=== PATIENT | male | born 1955 | race Caucasian/White ===

== ENCOUNTER → 2018-08-04 | Outpatient (CLI) | payer OTHER ==
[~2018-08-04] MED LIST: DIAZEPAM 10 MG TABLET. ONE; IOHEXOL 300 MG/ML 100ML VIAL. ONE; IV NORMAL SALINE 500ML BAG 500 ML ONE; LIDOCAINE 1% Multi-Dose 50 ML VIAL. ONE; MIDAZOLAM HCL/PF 2 MG/2 ML VIAL. ONE; WATER FOR INJECTION,STERILE 10 ML IJ ONE; ceFAZolin SODIUM 1 GM VIAL ONE; fentaNYL PF VIAL 100 MCG/2 ML VIAL ONE
--- NOTE | 2018-08-04 10:08 | PCVCINTER ---
EXAM: INFERIOR VENA CAVA FILTER PLACEMENT INDICATION: Planned knee replacement surgery. Filter requested for pulmonary embolism prevention. DVT. PROCEDURE: Procedure and risks of the IVC filter placement were discussed with the patient and consent obtained. Risks including but not limited to bleeding, infection, stroke, vascular injury, neurologic injury, embolization, allergic reactions, contrast-induced nephropathy requiring dialysis, and filter fracture/migration were discussed as appropriate and consent obtained. Patient was placed on the angiography table. IV conscious sedation was utilized with appropriate monitoring for 30 minutes. The patient'sright groin was prepped and draped in the normal sterile fashion. Ultrasound showed the right common femoral vein to be patent and a spot image was obtained. Under ultrasound guidance access into the right common femoral vein was obtained and a 6 [place] sheath placed. A marker catheter was placed into the lower inferior vena cava and IVC cavogram obtained. The IVC was measured with digital calipers and shown to be 21.8 mm. The position of the renal veins were noted and a Bard Nuvia IVC filter was deployed below the level of the renal veins. Follow-up IVC cavogram was performed. Catheters and sheath were removed and hemostasis obtained using manual pressure. No immediate complications. FINDINGS: The inferior vena cava is patent with no evidence of thrombus or other abnormality. Renal veins are in the expected location. Satisfactory placement of IVC filter below the level of the renal veins. IMPRESSION: Satisfactory placement of IVC filter as reviewed above. LOC:[id number]
== END | disposition home or self-care (01) ==
LOC: PCVCINTER 08:10
PROVIDERS: ATTEND Nuclear Medicine Nuclear Cardiology
DX: I82.409 Acute embolism and thrombosis of unspecified deep veins of unspecified lower extremity (principal); I10 Essential (primary) hypertension; K21.9 Gastro-esophageal reflux disease without esophagitis; Z86.711 Personal history of pulmonary embolism; E78.00 Pure hypercholesterolemia, unspecified; Z90.5 Acquired absence of kidney; Z98.890 Other specified postprocedural states; Z98.52 Vasectomy status; Z80.0 Family history of malignant neoplasm of digestive organs; Z82.3 Family history of stroke; Z83.6 Family history of other diseases of the respiratory system; Z80.1 Family history of malignant neoplasm of trachea, bronchus and lung; Z72.89 Other problems related to lifestyle; Z88.8 Allergy status to other drugs, medicaments and biological substances; Z79.899 Other long term (current) drug therapy; Z79.82 Long term (current) use of aspirin; E66.9 Obesity, unspecified
CPT/HCPCS: 37191; 99152; 99153; C1751; C1769; C1894; J0690; J1644; J2250; J3010; J7040; Q9967

== ENCOUNTER → 2018-09-19 | Outpatient (CLI) | payer OTHER ==
[~2018-09-19] MED LIST changes: -WATER FOR INJECTION,STERILE 10 ML IJ ONE; -ceFAZolin SODIUM 1 GM VIAL ONE
--- NOTE | 2018-09-19 10:57 | PCVCINTER ---
EXAM: INFERIOR VENA CAVA FILTER REMOVAL INDICATION: No longer needs IVC filter. PROCEDURE: Procedure and risks of IVC filter removal including bleeding, infection, IVC thrombosis, IVC perforation, and were discussed with the patient and consent obtained. The patient's right neck and chest were prepped and draped in the normal sterile fashion. IV conscious sedation was used throughout the procedure with appropriate monitoring. Ultrasound was used to interrogate the neck and showed the internal jugular vein to be patent. A spot ultrasound image of the internal jugular vein was saved. Under ultrasound guidance access into the right internal jugular vein was obtained and a coaxial retrieval sheath was placed. Through this a flush catheter was placed into the lower IVC and IVC cavogram was performed. Next a snare was placed and used to snare the retrieval hook at the superior aspect of the previously placed IVC filter. The filter was carefully guided into the retrieval sheath and removed in the standard fashion. Follow-up IVC cavogram was performed via the sheath. Catheters and sheath were removed and hemostasis obtained using manual pressure. No immediate complications. FINDINGS: IVC cavogram: The IVC is patent with no evidence of significant thrombus within the previously placed IVC filter. Satisfactory retrieval of the IVC filter. IMPRESSION: Satisfactory removal of IVC filter as reviewed above. LOC:[id number]
== END | disposition home or self-care (01) ==
LOC: PCVCINTER 08:29
PROVIDERS: ATTEND Nuclear Medicine Nuclear Cardiology
DX: Z45.89 Encounter for adjustment and management of other implanted devices (principal); I10 Essential (primary) hypertension; K21.9 Gastro-esophageal reflux disease without esophagitis; I26.99 Other pulmonary embolism without acute cor pulmonale; E78.00 Pure hypercholesterolemia, unspecified; Z82.3 Family history of stroke; Z83.6 Family history of other diseases of the respiratory system; Z80.1 Family history of malignant neoplasm of trachea, bronchus and lung; Z80.0 Family history of malignant neoplasm of digestive organs; Z88.8 Allergy status to other drugs, medicaments and biological substances; Z79.82 Long term (current) use of aspirin; Z79.899 Other long term (current) drug therapy
CPT/HCPCS: 37193; C1751; C1769; C1773; C1894; J1644; J2250; J3010; J7040; Q9967